=== PATIENT | male | born 2000 | race Caucasian/White ===

== ENCOUNTER 2020-06-02 15:08 | Emergency (ER) | payer MEDICAID ==
[~2020-06-02] VITALS: Ht 182.9 cm; Wt 72.6 kg
[2020-06-02 15:20] VITALS: BP_SYST 106
[2020-06-02 16:25] VITALS: BP_SYST 106
== END 2020-06-02 16:27 | disposition home or self-care (01) ==
LOC: SED 15:08
DX: M54.42 Lumbago with sciatica, left side (principal)
CPT/HCPCS: 99283

== ENCOUNTER 2021-06-04 21:31 | Emergency (ER) | payer MEDICAID ==
[~2021-06-04] VITALS: Ht 182.9 cm; Wt 71.7 kg
[2021-06-04 21:41] VITALS: BP_SYST 125
[2021-06-05 01:36] VITALS: BP_SYST 113
== END 2021-06-05 01:36 | disposition home or self-care (01) ==
LOC: SED 21:31
DX: T15.91XA Foreign body on external eye, part unspecified, right eye, initial encounter (principal); X58.XXXA Exposure to other specified factors, initial encounter; Y93.89 Activity, other specified; Y92.89 Other specified places as the place of occurrence of the external cause; Y99.8 Other external cause status
CPT/HCPCS: 99281